=== PATIENT | female | born 1975 ===

== ENCOUNTER 2017-06-03 17:46 | Emergency (ER) | payer OTHER ==
[2017-06-03 17:46] VITALS: BMI 28.5
[2017-06-03 17:53] VITALS: O2SAT 97
--- NOTE | 2017-06-03 19:10 | C.PDOC ---
History Of Present Illness 41 y/o female c/o sore throat since last night, with difficulty and painful swallowing. denies sick contacts, denies cough, runny nose, c/o itchy ears. Time Seen by Provider: 06/03/17 18:49 Chief Complaint (Nursing): ENT Problem History Per: Patient History/Exam Limitations: None Onset/Duration Of Symptoms: Days (1) Current Symptoms Are (Timing): Still Present Quality (Ear): Other (itching) Quality (Mouth/Throat): Tenderness, Swelling, Redness Symptoms Have Been: Continuous Severity: Moderate Anticoagulant/Antiplatlet Use?: No Past Medical History Reviewed: Historical Data, Nursing Documentation, Vital Signs Vital Signs: Last Vital Signs Temp 98.2 F 06/03/17 19:23 Pulse 75 06/03/17 19:23 Resp 18 06/03/17 19:23 BP 128/75 06/03/17 19:23 Pulse Ox 97 06/03/17 19:24 - Medical History PMH: Anemia, Asthma, Back Problems, HTN Denies: Chronic Kidney Disease Surgical History: Cholecystectomy Other Surgeries: hysterectomy - [facility] Procedures LAPAROSCOP LYSIS-ADHES OVA,FALLOP TUBE (02/20/15) LAPAROSCOP UNILAT SALPINGO-OOPHORECTOMY (02/20/15) LAPAROSCOPIC ROBOTIC ASSISTED PROCEDURE (02/20/15) Family History: States: Unknown Family Hx - Social History Hx Tobacco Use: No Hx Alcohol Use: No Hx Substance Use: No - Immunization History Hx Tetanus Toxoid Vaccination: Yes Hx Influenza Vaccination: No Hx Pneumococcal Vaccination: Yes Review Of Systems Constitutional: Negative for: Fever, Chills ENT: Positive for: Throat Pain, Throat Swelling. Negative for: Ear Pain (itchy ears), Nose Pain Cardiovascular: Negative for: Chest Pain Respiratory: Negative for: Cough, Shortness of Breath Skin: Negative for: Rash Physical Exam - Physical Exam Appears: Non-toxic, No Acute Distress Skin: Warm, Dry Head: Atraumatic, Normacephalic Eye(s): bilateral: Normal Inspection Ear(s): Bilateral: Normal Nose: Normal Oral Mucosa: Moist Tongue: Normal Appearing Lips: Normal Appearing, No Swelling Teeth: Normal Dentition Throat: Erythema, Exudate, No Drooling, No Mass, Other (right greater than left , not touching. ) Neck: Normal ROM Lymphatic: Adenopathy (bilateral submandibular tender nodes, right greater than left) Cardiovascular: Rhythm Regular, No Murmur Respiratory: Normal Breath Sounds, No Rales, No Rhonchi, No Wheezing ED Course And Treatment O2 Sat by Pulse Oximetry: 97 Medical Decision Making Medical Decision Making: pt with bilateral elnarged nodes with exudate, will tx for pharyngitis. Disposition Counseled Patient/Family Regarding: Diagnosis, Need For Followup, Rx Given - Disposition Referrals: Shaik Conde MD [Staff Provider] - Disposition: HOME/ ROUTINE Disposition Time: 19:20 Condition: STABLE Additional Instructions: Gargle with warm salty water 3 times a day. Ibupforen for pain. Take antibiotics as prescribed. Follow up with your doctor in a few days. Prescriptions: Amoxicillin 500 mg PO BID #20 tab Ibuprofen [Motrin] 600 mg PO TID #30 tab Instructions: Pharyngitis (ED) Print Language: BENINESE - Clinical Impression Clinical Impression: Pharyngitis
[2017-06-03 19:24] VITALS: BP 128/75; PULSE 75; RESP 18; TEMP 98.2
== END 2017-06-03 19:27 | disposition home or self-care (01) ==
LOC: C.ER 17:46
DX: J02.9 Acute pharyngitis, unspecified (principal)

== ENCOUNTER 2017-08-09 09:49 | Emergency (ER) | payer OTHER ==
[2017-08-09 09:49] VITALS: BMI 28.5
--- NOTE | 2017-08-09 10:31 | C.PDOC ---
History Of Present Illness 08/09/2017 Ade Forte is a 42 year old female, whose past medical history includes HTN , neuropathy, and hysterectomy, presents to the emergency department complaining of a right sided headache for the past three days. Patient reports her last headache was in December, but nothing compared to this current one. She notes taking Ibuprofen 800mg which was prescribed by her PMD and her last dose was at 09:00 prior to arrival, but there was no significant relief. Patient also states the pain radiates down to the right side of neck. Patient denies any nausea, vomiting, light sensitivity, shortness of breath, abdominal pain, or other complaints. Time Seen by Provider: 08/09/17 10:01 Chief Complaint (Nursing): Headache History Per: Patient History/Exam Limitations: no limitations Onset/Duration Of Symptoms: Days (3 days) Current Symptoms Are (Timing): Still Present Preceeding Symptoms: denies: Visual Disturbances Associated Symptoms: denies: Blurred Vision, Nausea, Vomiting Past Medical History Reviewed: Historical Data, Nursing Documentation, Vital Signs Vital Signs: Last Vital Signs Temp 98.0 F 08/09/17 11:54 Pulse 62 08/09/17 11:54 Resp 16 08/09/17 11:54 BP 130/81 08/09/17 11:54 Pulse Ox 99 08/09/17 11:56 - Medical History PMH: Anemia, Asthma, Back Problems, HTN Denies: Chronic Kidney Disease Surgical History: Cholecystectomy - [facility] Procedures LAPAROSCOP LYSIS-ADHES OVA,FALLOP TUBE (02/20/15) LAPAROSCOP UNILAT SALPINGO-OOPHORECTOMY (02/20/15) LAPAROSCOPIC ROBOTIC ASSISTED PROCEDURE (02/20/15) Family History: States: Unknown Family Hx - Social History Hx Tobacco Use: No Hx Alcohol Use: No Hx Substance Use: No - Immunization History Hx Tetanus Toxoid Vaccination: Yes Hx Influenza Vaccination: No Hx Pneumococcal Vaccination: Yes Review Of Systems Constitutional: Negative for: Fever Cardiovascular: Negative for: Chest Pain Respiratory: Negative for: Shortness of Breath Gastrointestinal: Negative for: Nausea, Vomiting Neurological: Positive for: Headache (right sided headache that radiates down to right side of neck) Physical Exam - Physical Exam Appears: Well, Non-toxic, No Acute Distress Skin: Normal Color, Warm, Dry Head: Atraumatic, Normacephalic Eye(s): bilateral: Normal Inspection, PERRL, EOMI Neck: Normal, Normal ROM, Other (no nystagmus) Cardiovascular: Rhythm Regular, No Friction Rub Gastrointestinal/Abdominal: Soft, No Tenderness Extremity: Normal ROM Neurological/Psych: Oriented x3, Normal Speech, Normal Cognition, Normal Cranial Nerves, Normal Motor, Normal Sensation Extremity: Right: No Drift, Left: No Drift ED Course And Treatment O2 Sat by Pulse Oximetry: 99 (room air) Pulse Ox Interpretation: Normal - Radiology CXR: Read By Radiologist Medical Decision Making Medical Decision Makin08/09/2017 Impression: 42 year old with headache for the past three days that radiates down to right side of neck. No nystagmus present on physical exam. Motor, cranial, strength, and sensation intact. Plan: -- Head CT without contrast -- Reglan -- Reassess and disposition Progress Notes: 08/09/2017 11:[address]: Creator : Rasheed Jackson MD FINDINGS: HEMORRHAGE: No intracranial hemorrhage. BRAIN: No mass effect or edema. No atrophy or chronic microvascular ischemic changes. Stable calcification of anterior falx cerebri. . VENTRICLES: Unremarkable. No hydrocephalus. CALVARIUM: Unremarkable. PARANASAL SINUSES: No evidence of sinusitis. Deviated nasal septum towards the left. MASTOID AIR CELLS: Unremarkable as visualized. No inflammatory changes. OTHER FINDINGS: None. IMPRESSION: No intracranial mass, hemorrhage or evidence of acute infarct. 1153 am pt reports headache resolved. ct negative. will d/c with pmd f/u Disposition Counseled Patient/Family Regarding: Studies Performed, Diagnosis, Need For Followup - Disposition Referrals: Shaik Conde MD [Staff Provider] - Disposition: HOME/ ROUTINE Disposition Time: 11:54 Condition: STABLE Additional Instructions: Jauregui exploracin del cerebro es normal. Seguimiento con el Dr. Conde en los pr ximos espino Volver a ER para cualquier empeoramiento de los sntomas. Instructions: Acute Headache (ED) Forms: Gen Discharge Inst Israeli, [facility] (Israeli) Print Language: UKRAINIAN - Clinical Impression Clinical Impression: Headache - Scribe Statement The provider has reviewed the documentation as recorded by the Scribe 08/09/2017 Scribe Attestation: Melanie Cordoba MD Scribe Attestation: All medical record entries made by the Scribe were at my direction and personally dictated by me. I have reviewed the chart and agree that the record accurately reflects my personal performance of the history, physical exam, medical decision making, and the department course for this patient. I have also personally directed, reviewed, and agree with the discharge instructions and disposition.
--- NOTE | 2017-08-09 11:17 | CT ---
PROCEDURE: CT HEAD WITHOUT CONTRAST. HISTORY: right side headache COMPARISON: 12/14/2014 TECHNIQUE: Axial computed tomography images were obtained through the head/brain without intravenous contrast. Radiation dose: Total exam DLP = 903.32 mGy-cm. This CT exam was performed using one or more of the following dose reduction techniques: Automated exposure control, adjustment of the mA and/or kV according to patient size, and/or use of iterative reconstruction technique. FINDINGS: HEMORRHAGE: No intracranial hemorrhage. BRAIN: No mass effect or edema. No atrophy or chronic microvascular ischemic changes. Stable calcification of anterior falx cerebri. . VENTRICLES: Unremarkable. No hydrocephalus. CALVARIUM: Unremarkable. PARANASAL SINUSES: No evidence of sinusitis. Deviated nasal septum towards the left. MASTOID AIR CELLS: Unremarkable as visualized. No inflammatory changes. OTHER FINDINGS: None. IMPRESSION: No intracranial mass, hemorrhage or evidence of acute infarct.
[2017-08-09 11:55] VITALS: BP 130/81; PULSE 62; RESP 16; TEMP 98
[2017-08-09 11:56] VITALS: O2SAT 99
== END 2017-08-09 12:10 | disposition home or self-care (01) ==
LOC: C.ER 09:49
DX: R51 Headache (principal)
CPT/HCPCS: 70450; 96374; 99284; J2765

== ENCOUNTER 2017-09-26 06:38 | Emergency (ER) | payer OTHER ==
[2017-09-26 06:38] VITALS: BMI 28.5
[2017-09-26] MEDS ORDERED: Albuterol-Ipratrop 3 mg / 0.5 (3 ml) UD ONE (07:44)
[2017-09-26] MEDS: Albuterol-Ipratrop 3 mg / 0.5 (3 ml) UD IH SCH ×2 (08:00→08:10)
--- NOTE | 2017-09-26 08:07 | C.PDOC ---
History Of Present Illness 42 y/o female, with PMHx of sleep apnea, presents to ED for evaluation of intermittent shortness of breath for the past 2 days. Pt states that she is scheduled for surgery to remove her tonsils on 10/05/17 in [place]. Otherwise, denies cough, sputum, chest pain, or fever. Time Seen by Provider: 09/26/17 07:19 Chief Complaint (Nursing): Shortness Of Breath History Per: Patient History/Exam Limitations: no limitations Onset/Duration Of Symptoms: Days (2) Current Symptoms Are (Timing): Still Present Current Respiratory Medications: See Home Med List Severity: None Pain Scale Rating Of: 0 Associated Symptoms: denies: Fever, Chest Pain Recent travel outside of the [place]: No Additional History Per: Patient Past Medical History Reviewed: Historical Data, Nursing Documentation, Vital Signs Vital Signs: Last Vital Signs Temp 98.0 F 09/26/17 09:15 Pulse 68 09/26/17 09:15 Resp 18 09/26/17 09:15 BP 131/87 09/26/17 09:15 Pulse Ox 100 09/26/17 09:15 - Medical History PMH: Anemia, Asthma, Back Problems, HTN, Sleep Apnea Denies: Chronic Kidney Disease Surgical History: Cholecystectomy - [facility] Procedures LAPAROSCOP LYSIS-ADHES OVA,FALLOP TUBE (02/20/15) LAPAROSCOP UNILAT SALPINGO-OOPHORECTOMY (02/20/15) LAPAROSCOPIC ROBOTIC ASSISTED PROCEDURE (02/20/15) Family History: States: Unknown Family Hx - Social History Hx Tobacco Use: No Hx Alcohol Use: No Hx Substance Use: No - Immunization History Hx Tetanus Toxoid Vaccination: Yes Hx Influenza Vaccination: No Hx Pneumococcal Vaccination: Yes Review Of Systems Except As Marked, All Systems Reviewed And Found Negative. Constitutional: Negative for: Fever, Chills ENT: Positive for: Other (enlarged tonsils) Cardiovascular: Negative for: Chest Pain, Palpitations, Edema Respiratory: Positive for: Shortness of Breath. Negative for: Cough, Sputum Neurological: Negative for: Headache, Dizziness Physical Exam - Physical Exam Appears: Non-toxic, No Acute Distress Skin: Normal Color, Warm, Dry Head: Atraumatic, Normacephalic Eye(s): bilateral: Normal Inspection Nose: Normal Oral Mucosa: Moist Throat: No Erythema, No Exudate, No Drooling, Other (enlarged tonsils R>L) Neck: Normal ROM, Supple Chest: Symmetrical Cardiovascular: Rhythm Regular, No Murmur Respiratory: Normal Breath Sounds, No Rales, No Rhonchi, No Wheezing Gastrointestinal/Abdominal: Soft, No Tenderness Extremity: Normal ROM, No Pedal Edema, No Deformity Neurological/Psych: Oriented x3, Normal Speech, Normal Cognition ED Course And Treatment O2 Sat by Pulse Oximetry: 98 (RA) Pulse Ox Interpretation: Normal Progress Note: Patient was given Decadron, and nebulizer treatment. On re- evaluation lungs clear, in no distress Reassessment Condition: Improved Disposition Counseled Patient/Family Regarding: Need For Followup - Disposition Disposition: HOME/ ROUTINE Disposition Time: 09:15 Condition: STABLE Additional Instructions: Follow up with pulmonology for further evaluation Return to ED if any increase symptoms Instructions: Asthma (ED), Dyspnea (ED) Forms: [employer] [facility] (Luxembourgish) - POA Present On Arrival: None - Clinical Impression Clinical Impression: Dyspnea, Asthma - PA / MAINTENANCE JOB TITLES / Resident Statement MD/DO has reviewed & agrees with the documentation as recorded. - Scribe Statement The provider has reviewed the documentation as recorded by the Scribe Sarah Das All medical record entries made by the Robertibjuan jose were at my direction and personally dictated by me. I have reviewed the chart and agree that the record accurately reflects my personal performance of the history, physical exam, medical decision making, and the department course for this patient. I have also personally directed, reviewed, and agree with the discharge instructions and disposition.
[2017-09-26 09:16] VITALS: BP 131/87; PULSE 68; RESP 18; TEMP 98
[2017-09-26 17:38] VITALS: O2SAT 98
== END 2017-09-26 09:49 | disposition home or self-care (01) ==
LOC: C.ER 06:38
DX: J45.909 Unspecified asthma, uncomplicated (principal); I10 Essential (primary) hypertension; G47.30 Sleep apnea, unspecified; R06.00 Dyspnea, unspecified
CPT/HCPCS: 94640; 99283; J8540

== ENCOUNTER 2017-10-08 08:53 | Emergency (ER) | payer OTHER ==
[2017-10-08 09:15] VITALS: BMI 31.4
[2017-10-08] MEDS ORDERED: Sodium Chloride 0.9% 1,000 ML IV ONE (09:29)
[2017-10-08] MEDS ORDERED: Sodium Chloride 0.9% 1,000 ML ONE (09:44)
--- NOTE | 2017-10-08 09:47 | C.PDOC ---
History Of Present Illness 42 y/o female c/o throat pain and blood in both nostrils s/p ENT surgery. Pt states that she has dry blood and drainage tubes in her nostrils. Pt states that she tried taking Percocet for pain but it makes her nauseous. Notes that she is unable to tolerate food. The surgeon from [place] recommended Tylenol for pain. No fever, shortness of breath, or other complaints. Time Seen by Provider: 10/08/17 09:09 Chief Complaint (Nursing): ENT Problem History Per: Patient History/Exam Limitations: no limitations Onset/Duration Of Symptoms: Days Current Symptoms Are (Timing): Still Present Quality: "Pain" Associated Symptoms: Nausea. denies: Dyspnea, Diaphoresis, Syncope Recent travel outside of the [place]: No Past Medical History Reviewed: Historical Data, Nursing Documentation, Vital Signs Vital Signs: Last Vital Signs Temp 98.9 F 10/08/17 11:17 Pulse 75 10/08/17 11:17 Resp 20 10/08/17 11:17 BP 143/83 10/08/17 11:17 Pulse Ox 98 10/08/17 11:17 - Medical History PMH: Anemia, Asthma, Back Problems, HTN, Sleep Apnea Denies: Chronic Kidney Disease Surgical History: Cholecystectomy, Tonsillectomy Other Surgeries: recent ENT surgery - [facility] Procedures LAPAROSCOP LYSIS-ADHES OVA,FALLOP TUBE (02/20/15) LAPAROSCOP UNILAT SALPINGO-OOPHORECTOMY (02/20/15) LAPAROSCOPIC ROBOTIC ASSISTED PROCEDURE (02/20/15) Family History: States: Unknown Family Hx - Social History Hx Tobacco Use: No Hx Alcohol Use: No Hx Substance Use: No - Immunization History Hx Tetanus Toxoid Vaccination: No Hx Influenza Vaccination: No Hx Pneumococcal Vaccination: No Review Of Systems Except As Marked, All Systems Reviewed And Found Negative. Constitutional: Negative for: Fever, Chills ENT: Positive for: Nose Pain, Nose Discharge, Throat Pain Respiratory: Positive for: Cough Physical Exam - Physical Exam Appears: Non-toxic, No Acute Distress Skin: Normal Color, Warm, Dry Head: Atraumatic, Normacephalic Eye(s): bilateral: Normal Inspection Nose: Other (dry blood and drainage tubes in nostrils) Oral Mucosa: Moist Tongue: Normal Appearing Lips: Normal Appearing Throat: No Erythema, Exudate, No Drooling Neck: Supple Chest: Symmetrical Respiratory: No Accessory Muscle Use Gastrointestinal/Abdominal: Normal Exam Extremity: Normal ROM Neurological/Psych: Oriented x3, Normal Speech Gait: Steady ED Course And Treatment - Laboratory Results Result Diagrams: 10/08/17 09:43 10/08/17 09:43 Lab Interpretation: No Acute Changes Urine POC: Negative ECG: Interpreted By Me ECG Rhythm: Sinus Rhythm ECG Interpretation: Normal Rate From EC O2 Sat by Pulse Oximetry: 99 Pulse Ox Interpretation: Normal - Radiology CXR: Interpreted by Me CXR Interpretation: Yes: No Acute Disease Progress Note: Blood work, UA, EKG, CXR ordered and reviewed. Pt was given Zofran, IV fluids, and Morphine. Nasal irrigation by patient at bedside as per ENT surgeon. Ambulating with steady gait Reassessment Condition: Improved Disposition Counseled Patient/Family Regarding: Studies Performed, Diagnosis, Need For Followup, Rx Given - Disposition Referrals: [facility] [Outside] [facility] [Outside] Disposition: HOME/ ROUTINE Disposition Time: 11:00 Condition: STABLE Additional Instructions: Follow up with your ENT surgeon in [place] for further evaluation Prescriptions: Ondansetron ODT [Zofran ODT] 1 odt PO BID PRN #6 odt PRN Reason: Nausea/Vomiting Instructions: Acute Nausea and Vomiting (ED) Forms: [facility] (Japanese) Print Language: POLISH - POA Present On Arrival: None - Clinical Impression Clinical Impression: Nausea - PA / COMMUNITY DIRECTOR / Resident Statement MD/DO has reviewed & agrees with the documentation as recorded. - Scribe Statement The provider has reviewed the documentation as recorded by the Robertibjuan jose Das All medical record entries made by the Robertibjuan jose were at my direction and personally dictated by me. I have reviewed the chart and agree that the record accurately reflects my personal performance of the history, physical exam, medical decision making, and the department course for this patient. I have also personally directed, reviewed, and agree with the discharge instructions and disposition.
[2017-10-08 09:49] LABS: BASO % 0.7 % (0.0-2.0); EOS # 0.1 K/uL (0.0-0.7); HEMATOCRIT 43.5 % (34.0-47.0); LYMPH % 28.7 % (20.0-40.0); MEAN CELL VOLUME 88.9 fL (81.0-99.0); MEAN CORPUSCULAR HEMOGLOBIN 29.9 pg (27.0-31.0); MEAN CORPUSCULAR HGB CONC 33.6 g/dL (33.0-37.0); MEAN PLATELET VOLUME 8.4 fL (7.2-11.7); MONO # 0.3 K/uL (0.0-0.8); MONO % 3.8 % (0.0-10.0); NRBC % 0.1 % (0.0-2.0); RED CELL DISTRIBUTION WIDTH 13.3 % (11.5-14.5)
[2017-10-08 09:59] LABS: ALB/GLOB RATIO 1.2 (1.0-2.1); ALKALINE PHOSPHATASE 69 U/L (38-126); ALT/SGPT 39 U/L (9-52); AST/SGOT 22 U/L (14-36); BILIRUBIN,TOTAL 0.9 mg/dL (0.2-1.3); CARBON DIOXIDE 31 mmol/L (22-30); GLUCOSE,RANDOM 101 mg/dL (65-105)
[2017-10-08] MEDS ORDERED: Morphine 4 MG/ML VIAL ONE (10:02)
[2017-10-08 10:16] LABS: BLOOD UREA NITROGEN 9 mg/dL (7-17)
[2017-10-08 10:20] LABS: CHLORIDE 95 mmol/L (98-107); GFR AFRICAN-AMERICAN > 60; POTASSIUM 4.3 mmol/L (3.6-5.2); SODIUM 136 mmol/L (132-148)
[2017-10-08 10:24] LABS: RBC URINE 1 /hpf (0-3); URINE BILIRUBIN NEGATIVE (NEGATIVE); URINE BLOOD NEGATIVE (NEGATIVE); URINE COLOR Yellow (YELLOW); URINE GLUCOSE (UA) NORMAL (Normal); URINE KETONE NEGATIVE (NEGATIVE); URINE LEUKOCYTE ESTERASE NEG Leu/uL (Negative); URINE PROTEIN NEGATIVE (NEGATIVE); URINE UROBILINOGEN NORMAL mg/dL (0.2-1.0); WBC URINE 1 /hpf (0-5)
--- NOTE | 2017-10-08 11:04 | RAD ---
HISTORY: SOB COMPARISON: Portable chest 10/01/2015. TECHNIQUE: Chest PA and lateral FINDINGS: LUNGS: No active pulmonary disease. PLEURA: No significant pleural effusion identified. No pneumothorax apparent. CARDIOVASCULAR: Normal. OSSEOUS STRUCTURES: No significant abnormalities. VISUALIZED UPPER ABDOMEN: Surgical clips are seen at the right upper quadrant abdomen. OTHER FINDINGS: None. IMPRESSION: No interval acute cardiopulmonary disease appreciated.
[2017-10-08 11:18] VITALS: BP 143/83; PULSE 75; RESP 20; TEMP 98.9
[2017-10-08 17:29] VITALS: O2SAT 99
--- NOTE | 2017-10-13 11:15 | CARD ---
APPROVED REPORT EKG Measurement Heart [id number] <Conclusion> Normal sinus rhythm Minimal voltage criteria for LVH, may be normal variant Borderline ECG
== END 2017-10-08 11:23 | disposition home or self-care (01) ==
LOC: C.ER 08:53
DX: R11.0 Nausea (principal)
CPT/HCPCS: 71020; 80053; 81001; 84703; 85025; 96361; 96374; 96375; 99285; J2270; J2405; J7040

== ENCOUNTER 2017-10-08 12:04 | Emergency (ER) | payer OTHER ==
[2017-10-08 12:05] VITALS: BMI 31.4
[2017-10-08 12:28] VITALS: RESP 18
--- NOTE | 2017-10-08 13:11 | C.PDOC ---
History Of Present Illness 42 y/o female s/p ENT surgery presents to ED for second time today with complaints of feeling dizzy at home when discharged hours ago. Patient was seen earlier for throat pain. Patient states she went home and started feeling dizzy but resolved and is asymptomatic at ED. No other complaints at this time. Time Seen by Provider: 10/08/17 12:53 Chief Complaint (Nursing): Dizziness/Lightheaded History Per: Patient History/Exam Limitations: no limitations Onset/Duration Of Symptoms: Hrs Current Symptoms Are (Timing): Still Present Activity At Onset Of Symptoms: Walking Fall Associated With With Symptoms: No Past Medical History Reviewed: Historical Data, Nursing Documentation, Vital Signs Vital Signs: Last Vital Signs Temp 98.7 F 10/08/17 13:28 Pulse 81 10/08/17 13:28 Resp 18 10/08/17 13:28 BP 106/72 10/08/17 13:28 Pulse Ox 99 10/08/17 17:52 - Medical History PMH: Anemia, Asthma, Back Problems, HTN, Sleep Apnea Surgical History: Cholecystectomy, Tonsillectomy Other Surgeries: ENT surgery - [facility] Procedures LAPAROSCOP LYSIS-ADHES OVA,FALLOP TUBE (02/20/15) LAPAROSCOP UNILAT SALPINGO-OOPHORECTOMY (02/20/15) LAPAROSCOPIC ROBOTIC ASSISTED PROCEDURE (02/20/15) Family History: States: No Known Family Hx - Social History Hx Tobacco Use: No Hx Alcohol Use: No Hx Substance Use: No - Immunization History Hx Tetanus Toxoid Vaccination: No Hx Influenza Vaccination: No Hx Pneumococcal Vaccination: No Review Of Systems Constitutional: Negative for: Fever, Chills ENT: Positive for: Throat Pain Gastrointestinal: Negative for: Nausea, Vomiting Skin: Negative for: Rash Neurological: Positive for: Dizziness. Negative for: Weakness, Numbness Physical Exam - Physical Exam Appears: Non-toxic, No Acute Distress Skin: Warm, No Rash Head: Atraumatic, Normacephalic Oral Mucosa: Moist Neck: Normal ROM, Supple Cardiovascular: Rhythm Regular Respiratory: Normal Breath Sounds, No Rales, No Rhonchi, No Wheezing Gastrointestinal/Abdominal: Soft, No Tenderness, No Guarding, No Rebound Neurological/Psych: Oriented x3, Normal Speech, Normal Cognition, Normal Motor, Normal Sensation Gait: Steady ED Course And Treatment O2 Sat by Pulse Oximetry: 99 (RA) Pulse Ox Interpretation: Normal Progress Note: Patient reports she is feeling better and requests discharge. Discharged in stable condition. Ambulating with steady gait, neuro intact Disposition Counseled Patient/Family Regarding: Need For Followup - Disposition Referrals: [facility] [Outside] [facility] [Outside] Disposition: HOME/ ROUTINE Disposition Time: 13:30 Condition: STABLE Additional Instructions: Follow up with your PMD for further evaluation Instructions: Dizziness (ED) Forms: [employer] (Gambian) Print Language: KAZAKH - POA Present On Arrival: None - Clinical Impression Clinical Impression: Dizziness - PA / POWER HAMMER OPERATOR / Resident Statement MD/DO has reviewed & agrees with the documentation as recorded. - Scribe Statement The provider has reviewed the documentation as recorded by the Robertibjuan jose Valladares All medical record entries made by the Nicole were at my direction and personally dictated by me. I have reviewed the chart and agree that the record accurately reflects my personal performance of the history, physical exam, medical decision making, and the department course for this patient. I have also personally directed, reviewed, and agree with the discharge instructions and disposition.
[2017-10-08 13:30] VITALS: BP 106/72; PULSE 81; TEMP 98.7
[2017-10-08 13:38] VITALS: O2SAT 99
--- NOTE | 2017-10-13 11:12 | CARD ---
APPROVED REPORT EKG Measurement Heart [id number] <Conclusion> Normal sinus rhythm Minimal voltage criteria for LVH, may be normal variant Borderline ECG
== END 2017-10-08 13:30 | disposition home or self-care (01) ==
LOC: C.ER 12:04
DX: R42 Dizziness and giddiness (principal)

== ENCOUNTER 2018-02-08 15:23 | Emergency (ER) | payer OTHER ==
[2018-02-08 15:24] VITALS: BMI 31.4
[2018-02-08 15:39] VITALS: BP 131/80; PULSE 81; RESP 18; TEMP 98.1; O2SAT 97
--- NOTE | 2018-02-08 17:05 | C.PDOC ---
History Of Present Illness 42 year old female presents to the ED c/o bilateral lower back pain radiating to her groin that started on Thursday. Patient denies any heavy lifting, recent injury, fall, trauma. Patient denies numbness, weakness, saddle anesthesia, bowel or bladder dysfunction, some urinary frequency. no fever or chills. no vnnauea or vomiting. Time Seen by Provider: 02/08/18 16:27 Chief Complaint (Nursing): Back Pain History Per: Patient History/Exam Limitations: no limitations Onset/Duration Of Symptoms: Days Current Symptoms Are (Timing): Still Present Quality Of Discomfort: "Pain" Severity: None Previous Symptoms: Back Pain Associated Symptoms: None Recent travel outside of the [place]: No Additional History Per: Patient Past Medical History Reviewed: Historical Data, Nursing Documentation, Vital Signs Vital Signs: Last Vital Signs Temp 98.1 F 02/08/18 15:37 Pulse 81 02/08/18 15:37 Resp 18 02/08/18 15:37 BP 131/80 02/08/18 15:37 Pulse Ox 97 02/10/18 01:29 - Medical History PMH: Anemia, Asthma, Back Problems, HTN, Sleep Apnea Denies: Chronic Kidney Disease Surgical History: Cholecystectomy, Tonsillectomy - [facility] Procedures LAPAROSCOP LYSIS-ADHES OVA,FALLOP TUBE (02/20/15) LAPAROSCOP UNILAT SALPINGO-OOPHORECTOMY (02/20/15) LAPAROSCOPIC ROBOTIC ASSISTED PROCEDURE (02/20/15) Family History: States: Unknown Family Hx - Social History Hx Tobacco Use: No Hx Alcohol Use: Yes Hx Substance Use: No - Immunization History Hx Tetanus Toxoid Vaccination: No Hx Influenza Vaccination: No Hx Pneumococcal Vaccination: No Review Of Systems Constitutional: Negative for: Fever, Chills Cardiovascular: Negative for: Chest Pain, Palpitations Respiratory: Negative for: Cough, Shortness of Breath Gastrointestinal: Negative for: Nausea, Vomiting, Abdominal Pain Musculoskeletal: Positive for: Back Pain Skin: Negative for: Rash Neurological: Negative for: Weakness, Numbness Physical Exam - Physical Exam Appears: Non-toxic, No Acute Distress Skin: Warm, Dry Neck: No Midline Cervical Tenderness, Supple Gastrointestinal/Abdominal: Soft, No Tenderness, No Mass, No Guarding, No Rebound Back: No CVA Tenderness, No Vertebral Tenderness, Paraspinal Tenderness (B/L lower lumbar), Other (B/L groin area tenderness) Extremity: Normal ROM, No Tenderness, No Calf Tenderness, No Swelling Neurological/Psych: Oriented x3, Normal Speech, Normal Cognition, Normal Motor, Normal Sensation Gait: Steady ED Course And Treatment O2 Sat by Pulse Oximetry: 97 (On RA) Pulse Ox Interpretation: Normal Medical Decision Making Medical Decision Making: Plan: * Flexeril 10 mg PO * Toradol 30 mg IM * UA pt feeling better, d/c home with nsaids and flexeril. f/u pmd Disposition Counseled Patient/Family Regarding: Diagnosis, Need For Followup, Rx Given - Disposition Referrals: Shaik Conde MD [Staff Provider] - Disposition: HOME/ ROUTINE Disposition Time: 17:41 Condition: IMPROVED Additional Instructions: Please follow up with your doctor in a few days. Take medications as prescribed. Muscle relaxant makes you sleepy- be careful with this medicine. Prescriptions: Cyclobenzaprine [Cyclobenzaprine HCl] 10 mg PO Q8 #9 tab Ibuprofen [Motrin] 600 mg PO TID #30 tab Instructions: Low Back Pain (DC) Forms: [facility] [employer] (Sinhala), General Discharge Instructions Print Language: MOSOTHO - Clinical Impression Clinical Impression: Lumbar sprain - PA / GATE CUTTER / Resident Statement MD/DO has reviewed & agrees with the documentation as recorded. - Scribe Statement The provider has reviewed the documentation as recorded by the Scribe Davy Billy All medical record entries made by the Scribe were at my direction and personally dictated by me. I have reviewed the chart and agree that the record accurately reflects my personal performance of the history, physical exam, medical decision making, and the department course for this patient. I have also personally directed, reviewed, and agree with the discharge instructions and disposition.
[2018-02-08 17:24] LABS: SQUAMOUS EPITHIAL 4 /hpf (0-5); URINE BACTERIA OCC (<OCC); URINE BILIRUBIN NEGATIVE (NEGATIVE); URINE BLOOD NEGATIVE (NEGATIVE); URINE CLARITY Hazy (Clear); URINE COLOR Yellow (YELLOW); URINE GLUCOSE (UA) NORMAL (Normal); URINE LEUKOCYTE ESTERASE NEG Leu/uL (Negative); URINE PROTEIN NEGATIVE (NEGATIVE); URINE UROBILINOGEN NORMAL mg/dL (0.2-1.0)
== END 2018-02-08 17:53 | disposition home or self-care (01) ==
LOC: C.ER 15:23
DX: S33.5XXA Sprain of ligaments of lumbar spine, initial encounter (principal); X58.XXXA Exposure to other specified factors, initial encounter; I10 Essential (primary) hypertension
CPT/HCPCS: 81001; 96372; 99284; J1885

== ENCOUNTER 2018-04-24 19:00 | Emergency (ER) | payer OTHER ==
[2018-04-24 19:03] VITALS: BMI 34.0
[2018-04-24 19:12] VITALS: TEMP 98.9; O2SAT 100
--- NOTE | 2018-04-24 19:16 | C.PDOC ---
History Of Present Illness 42 y/o female presents to the ED via ambulance for evaluation of elevated BP. Of note, patient is also complaining of a headache that began this morning. States she went to the pharmacy, where her blood pressure was found to be elevated. She then began feeling weak and tired, and noticed a "pressure behind the back of her neck" denies any neurological deficit. So she called EMS. Patient was then brought in by EMS who also noted the patient had no facial droop or focal weakness. Pt taking Lisinopril 10 mg daily. pt "unable" to walk for exercise nor loose weight due to chronic bilateral foot pains. Patient denies any associated slurred speech, visual loss, confusion, memory loss, numbness, dizziness, chest pain, or other complaints. Time Seen by Provider: 04/24/18 19:13 Chief Complaint (Nursing): Weakness/Neurological Deficit History Per: Patient History/Exam Limitations: no limitations Onset/Duration Of Symptoms: Hrs Current Symptoms Are (Timing): Still Present Past Medical History Reviewed: Historical Data, Nursing Documentation, Vital Signs Vital Signs: Last Vital Signs Temp 98.9 F 04/24/18 19:11 Pulse 106 H 04/24/18 19:11 Resp 22 04/24/18 19:11 BP 184/114 H 04/24/18 19:11 Pulse Ox 100 04/24/18 19:37 - Medical History PMH: Anemia, Asthma, Back Problems, HTN, Sleep Apnea Denies: Chronic Kidney Disease Surgical History: Cholecystectomy, Tonsillectomy - [facility] Procedures LAPAROSCOP LYSIS-ADHES OVA,FALLOP TUBE (02/20/15) LAPAROSCOP UNILAT SALPINGO-OOPHORECTOMY (02/20/15) LAPAROSCOPIC ROBOTIC ASSISTED PROCEDURE (02/20/15) Family History: States: Unknown Family Hx - Social History Hx Tobacco Use: No Hx Alcohol Use: No Hx Substance Use: No - Immunization History Hx Tetanus Toxoid Vaccination: No Hx Influenza Vaccination: No Hx Pneumococcal Vaccination: No Review Of Systems Except As Marked, All Systems Reviewed And Found Negative. Constitutional: Positive for: Weakness Eyes: Negative for: Vision Change Cardiovascular: Negative for: Chest Pain, Light Headedness Gastrointestinal: Negative for: Nausea Musculoskeletal: Positive for: Neck Pain Neurological: Positive for: Weakness (of left arm), Headache, Other (Right facial droop). Negative for: Numbness, Incoordination, Change in Speech, Confusion, Dizziness Physical Exam - Physical Exam Appears: Non-toxic, No Acute Distress, Other (Anxious appearing; Obese black female, appears older than stated age) Skin: Normal Color, Warm, Dry Head: Atraumatic, Normacephalic, Other (No facial droop) Eye(s): bilateral: Normal Inspection, PERRL, EOMI Nose: Normal Oral Mucosa: Moist Throat: Normal, No Erythema, No Exudate Neck: Normal ROM, Supple (and nontender) Chest: Symmetrical Cardiovascular: Rhythm Regular, No Murmur Respiratory: Normal Breath Sounds, No Rales, No Rhonchi, No Wheezing Gastrointestinal/Abdominal: Soft, No Tenderness, No Guarding Back: Normal Inspection, No CVA Tenderness, No Vertebral Tenderness Extremity: Normal ROM (with no focal deficits; Motor strength is 5/5 throughout) , No Tenderness, No Deformity, No Swelling, Other (On exam, pt using left hand to speak on cell phone) Extremity: Bilateral: Atraumatic, Normal Color And Temperature Pulses: Left Dorsalis Pedis: Normal, Right Dorsalis Pedis: Normal Neurological/Psych: Oriented x3, Normal Speech, Normal Cranial Nerves, Cerebellar Signs (normal), Normal Motor, Normal Sensation Gait: Steady Other Neurological Findings: No Facial Palsy Extremity: Left: No Drift, Upper: No Drift ED Course And Treatment - Laboratory Results Result Diagrams: 04/24/18 19:19 04/24/18 19:19 Lab Interpretation: Normal (trop neg.) ECG: Interpreted By Nv ECG Rhythm: Sinus Rhythm ECG Interpretation: Normal Rate From EC O2 Sat by Pulse Oximetry: 100 (RA) Pulse Ox Interpretation: Normal - Radiology CXR: Interpreted by Nv CXR Interpretation: Yes: No Acute Disease Progress Note: tylenol, xanax, lisinopril 20 mg Reevaluation Time: 21:09 Reassessment Condition: Improved Medical Decision Making Medical Decision Making: Time: 19:13 Initial Plan: * EKG * Labs * Chest x-ray * Xanax 0.25 PO * Tylenol 975 mg PO * Lisinopril 20 mg PO * Reevaluation poorly controlled HTN on Lisinopril 10 mg only. anxiety, headache. NO s/s nor h/o of symptoms related to neurological deficit nor CVA Disposition Doctor Will See Patient In The: Office Counseled Patient/Family Regarding: Studies Performed, Diagnosis - Disposition Disposition: HOME/ ROUTINE Disposition Time: 21:10 Condition: GOOD Forms: [facility] (Grenadian) - Clinical Impression Clinical Impression: Anxiety, Hypertension - Scribe Statement The provider has reviewed the documentation as recorded by the Scribe (Migdalia Pollack) Provider Attestation: All medical record entries made by the Scribe were at my direction and personally dictated by me. I have reviewed the chart and agree that the record accurately reflects my personal performance of the history, physical exam, medical decision making, and the department course for this patient. I have also personally directed, reviewed, and agree with the discharge instructions and disposition.
[2018-04-24 19:21] LABS: BASO # 0.1 K/uL (0.0-0.2); EOS % 0.6 % (0.0-4.0); HEMOGLOBIN 13.7 g/dL (11.0-16.0); LYMPH % 37.3 % (20.0-40.0); MEAN CELL VOLUME 87.2 fL (81.0-99.0); MEAN CORPUSCULAR HEMOGLOBIN 29.4 pg (27.0-31.0); MEAN CORPUSCULAR HGB CONC 33.7 g/dL (33.0-37.0); MEAN PLATELET VOLUME 8.9 fL (7.2-11.7); MONO # 0.4 K/uL (0.0-0.8); NEUT # 4.6 K/uL (1.8-7.0); NEUT % 56.1 % (50.0-75.0); NRBC % 0.1 % (0.0-2.0); RBC 4.66 Mil/uL (3.80-5.20); RED CELL DISTRIBUTION WIDTH 13.8 % (11.5-14.5); WHITE BLOOD COUNT 8.2 K/uL (4.8-10.8)
[2018-04-24 19:35] LABS: ALB/GLOB RATIO 1.1 (1.0-2.1); ALBUMIN 4.5 g/dL (3.5-5.0); ALT/SGPT 41 U/L (9-52); AST/SGOT 38 U/L (14-36); BLOOD UREA NITROGEN 12 mg/dL (7-17); CALCIUM 9.4 mg/dl (8.6-10.4); GFR AFRICAN-AMERICAN > 60; GFR NON-AFRICAN AMERICAN > 60
[2018-04-24 19:47] LABS: B-TYPE NATRIURETIC PEPTIDE 98.1 pg/mL (0-450)
[2018-04-24 20:58] LABS: SQUAMOUS EPITHIAL < 1 /hpf (0-5); URINE BILIRUBIN NEGATIVE (NEGATIVE); URINE BLOOD NEGATIVE (NEGATIVE); URINE CLARITY Clear (Clear); URINE COLOR Yellow (YELLOW); URINE GLUCOSE (UA) NORMAL (Normal); URINE LEUKOCYTE ESTERASE NEG Leu/uL (Negative); URINE PROTEIN NEGATIVE (NEGATIVE); URINE UROBILINOGEN NORMAL mg/dL (0.2-1.0)
[2018-04-24 21:11] VITALS: BP 140/90; PULSE 85; RESP 19
[2018-04-24 21:12] LABS: BARBITURATES, UR NEGATIVE (NEGATIVE); BENZODIAZEPINES, UR NEGATIVE (NEGATIVE); OPIATES, UR NEGATIVE (NEGATIVE); PHENCYCLIDINE, UR NEGATIVE (NEGATIVE)
--- NOTE | 2018-04-25 11:07 | RAD ---
PROCEDURE: CHEST RADIOGRAPH, 1 VIEW HISTORY: SOB COMPARISON: Chest radiographs 10/08/2017. FINDINGS: LUNGS: Diminished inspiratory volume appears to accentuate the bronchovascular markings at the bases. Alveolitis is not suspected however clinically correlate further. PLEURA: No pneumothorax or pleural fluid seen. CARDIOVASCULAR: The cardiac silhouette is essentially by frontal technique. No definite pulmonary vascular congestion. OSSEOUS STRUCTURES: No significant abnormalities. VISUALIZED UPPER ABDOMEN: Normal. OTHER FINDINGS: None. IMPRESSION: Limited inspiratory volume. Accordingly, bronchovascular markings appear crowded at the bilateral bases. Borderline cardiomegaly. No pulmonary vascular congestion.
== END 2018-04-24 21:24 | disposition home or self-care (01) ==
LOC: C.ER 19:00
DX: I10 Essential (primary) hypertension (principal); F41.9 Anxiety disorder, unspecified; D64.9 Anemia, unspecified; G47.30 Sleep apnea, unspecified

== ENCOUNTER 2018-04-25 04:26 | Emergency (ER) | payer OTHER ==
[2018-04-25 04:27] VITALS: BMI 34.0
--- NOTE | 2018-04-25 05:08 | C.PDOC ---
History Of Present Illness 42 y/o female presents to the ED complaining of a persistent headache. Patient was seen here yesterday for the same complaint and discharged home. PMHx is significant for hypertension. Patient denies any nausea, vomiting, dizziness, visual changes, fever, neck stiffness, numbness, weakness, or SOB Time Seen by Provider: 04/25/18 04:49 Chief Complaint (Nursing): Headache History Per: Patient History/Exam Limitations: no limitations Onset/Duration Of Symptoms: Days Current Symptoms Are (Timing): Still Present Past Medical History Reviewed: Historical Data, Nursing Documentation, Vital Signs Vital Signs: Last Vital Signs Temp 99.2 F 04/25/18 04:41 Pulse 90 04/25/18 04:41 Resp 18 04/25/18 04:41 BP 156/90 H 04/25/18 04:41 Pulse Ox 97 04/25/18 06:04 - Medical History PMH: Anemia, Asthma, Back Problems, HTN, Sleep Apnea Denies: Chronic Kidney Disease Surgical History: Cholecystectomy, Tonsillectomy - [facility] Procedures LAPAROSCOP LYSIS-ADHES OVA,FALLOP TUBE (02/20/15) LAPAROSCOP UNILAT SALPINGO-OOPHORECTOMY (02/20/15) LAPAROSCOPIC ROBOTIC ASSISTED PROCEDURE (02/20/15) Family History: States: Unknown Family Hx - Social History Hx Tobacco Use: No Hx Alcohol Use: Yes Hx Substance Use: No - Immunization History Hx Tetanus Toxoid Vaccination: No Hx Influenza Vaccination: No Hx Pneumococcal Vaccination: No Review Of Systems Except As Marked, All Systems Reviewed And Found Negative. Constitutional: Negative for: Fever, Chills Eyes: Negative for: Vision Change Respiratory: Negative for: Shortness of Breath Gastrointestinal: Negative for: Nausea, Vomiting Musculoskeletal: Negative for: Neck Pain Neurological: Positive for: Headache. Negative for: Weakness, Numbness, Confusion, Dizziness Physical Exam - Physical Exam Appears: Non-toxic, No Acute Distress Skin: Normal Color, Warm, Dry Head: Atraumatic, Normacephalic Eye(s): bilateral: Normal Inspection (with no nystagmus), PERRL, EOMI Nose: Normal Oral Mucosa: Moist Neck: Normal ROM, No Midline Cervical Tenderness, Supple Chest: Symmetrical Cardiovascular: Rhythm Regular, No Murmur Respiratory: Normal Breath Sounds, No Rales, No Rhonchi, No Wheezing Gastrointestinal/Abdominal: Soft, No Tenderness, No Distention Back: Normal Inspection, No CVA Tenderness, No Vertebral Tenderness Extremity: Bilateral: Atraumatic, Normal Color And Temperature, Normal ROM Pulses: Left Dorsalis Pedis: Normal, Right Dorsalis Pedis: Normal Neurological/Psych: Oriented x3, Normal Speech, Normal Cranial Nerves, Cerebellar Signs (normal), Normal Motor, Normal Sensation, Other (No focal deficits) Gait: Steady ED Course And Treatment O2 Sat by Pulse Oximetry: 97 (RA) Pulse Ox Interpretation: Normal Medical Decision Making Medical Decision Making: Time: 4:52 Initial Plan: --Toradol 60 mg IM --CT Head w/o contrast Disposition Counseled Patient/Family Regarding: Diagnosis - Disposition Referrals: [facility] [Outside] Disposition Time: 06:01 Condition: STABLE Additional Instructions: CONTINUE TAKING BLOOD PRESSURE MEDICINE REGULARLY. Prescriptions: Naproxen 375 mg PO TIDPC #20 tablet Instructions: High Blood Pressure in Adults, Headache, Adult (DC) Forms: [facility] (Frisian) - POA Present On Arrival: None - Clinical Impression Clinical Impression: Headache, Hypertension - Scribe Statement The provider has reviewed the documentation as recorded by the Scribe (Migdalia Pollack) Provider Attestation: All medical record entries made by the Scribe were at my direction and personally dictated by me. I have reviewed the chart and agree that the record accurately reflects my personal performance of the history, physical exam, medical decision making, and the department course for this patient. I have also personally directed, reviewed, and agree with the discharge instructions and disposition.
--- NOTE | 2018-04-25 05:59 | CT ---
EXAM: CT Head Without Intravenous Contrast EXAM DATE/TIME: 04/25/2018 4:52 AM CLINICAL HISTORY: 42 years old, female; Pain; Headache; Other: Frontal; Additional info: Frontal headache TECHNIQUE: Axial computed tomography images of the head/brain without intravenous contrast. All CT scans at this facility use one or more dose reduction techniques, viz.: automated exposure control; ma/kV adjustment per patient size (including targeted exams where dose is matched to indication; i.e. head); or iterative reconstruction technique. Coronal and sagittal reformatted images were created and reviewed. COMPARISON: No relevant prior studies available. FINDINGS: BRAIN: No significant acute abnormality identified. No acute hemorrhage seen within the brain. No acute extra-axial fluid collections visualized. No evidence of significant mass effect within the brain. VENTRICLES: No evidence of significant hydrocephalus. BONES/JOINTS: No acute fractures or other acute bony abnormality noted. SOFT TISSUES: No acute abnormality of the visualized soft tissues is seen. SINUSES: Visualized paranasal sinuses appear clear. MASTOID AIR CELLS: Mastoid air cells appear clear. IMPRESSION: - No acute findings seen within the brain. - See above for remaining findings.
[2018-04-25 06:36] VITALS: BP 165/97; PULSE 79; RESP 17; TEMP 97.7; O2SAT 100
== END 2018-04-25 06:35 | disposition home or self-care (01) ==
LOC: C.ER 04:26
DX: R51 Headache (principal); I10 Essential (primary) hypertension
CPT/HCPCS: 70450; 96372; 99284; J1885

== ENCOUNTER 2018-04-25 22:27 | Emergency (ER) | payer OTHER ==
[2018-04-25 22:29] VITALS: BMI 34.0
[2018-04-25 22:40] VITALS: TEMP 98.3
[2018-04-25] MEDS ORDERED: Alum-Mag Hydrox-Simethicone Susp (30 mL) PO STA (22:55)
--- NOTE | 2018-04-25 22:58 | C.PDOC ---
History Of Present Illness 42 year old female presents to the ED c/o palpitations. Patient had multiple prior visits to the ED with vague symptoms. This is the patient's 3rd evaluation in 24 hrs. Patient was last seen for a headache, and was D/C home with a normal head CT. Patient denies CP, SOB< weakness, numbness. Time Seen by Provider: 04/25/18 22:40 Chief Complaint (Nursing): Palpitations History Per: Patient History/Exam Limitations: no limitations Onset/Duration Of Symptoms: Hrs Current Symptoms Are (Timing): Still Present Suicide/Self Injury Attempted (Context): None Modifying Factor(s): None Associated Symptoms: denies: Depression, Suicidal Thoughts, Suicidal Plan Involuntary Hold By: None Recent travel outside of the [place]: No Additional History Per: Patient Past Medical History Reviewed: Historical Data, Nursing Documentation, Vital Signs Vital Signs: Last Vital Signs Temp 98.3 F 04/25/18 23:12 Pulse 76 04/25/18 23:12 Resp 18 04/25/18 23:32 BP 130/76 04/25/18 23:12 Pulse Ox 100 04/25/18 23:12 - Medical History PMH: Anemia, Asthma, Back Problems, HTN, Sleep Apnea Denies: Chronic Kidney Disease Surgical History: Cholecystectomy, Tonsillectomy - [facility] Procedures LAPAROSCOP LYSIS-ADHES OVA,FALLOP TUBE (02/20/15) LAPAROSCOP UNILAT SALPINGO-OOPHORECTOMY (02/20/15) LAPAROSCOPIC ROBOTIC ASSISTED PROCEDURE (02/20/15) Family History: States: Unknown Family Hx - Social History Hx Tobacco Use: No Hx Alcohol Use: No Hx Substance Use: No - Immunization History Hx Tetanus Toxoid Vaccination: No Hx Influenza Vaccination: No Hx Pneumococcal Vaccination: No Review Of Systems Constitutional: Negative for: Fever, Chills Cardiovascular: Negative for: Chest Pain, Palpitations Respiratory: Negative for: Shortness of Breath Gastrointestinal: Negative for: Nausea, Vomiting Skin: Negative for: Rash Psych: Negative for: Depression, Suicidal ideation Physical Exam - Physical Exam Appears: Non-toxic, No Acute Distress, Other (obese) Skin: Normal Color, Warm, Dry Head: Atraumatic, Normacephalic Eye(s): bilateral: Normal Inspection Oral Mucosa: Moist Neck: Normal ROM, Supple Chest: Symmetrical Cardiovascular: Rhythm Regular Respiratory: Normal Breath Sounds, No Rales, No Rhonchi, No Wheezing Gastrointestinal/Abdominal: Soft, No Tenderness, No Guarding, No Rebound Extremity: Normal ROM, No Tenderness, No Swelling Neurological/Psych: Oriented x3, Normal Speech Gait: Steady ED Course And Treatment ECG: Interpreted By Me ECG Rhythm: Sinus Rhythm, V-Fibrillation Rate From EC (BPM) O2 Sat by Pulse Oximetry: 99 (ON RA) Pulse Ox Interpretation: Normal Medical Decision Making Medical Decision Makinrd ED visit in 24 hours for anxiety related issues. palpitations MAY be reflux related. NO further w/u at this time as 2 w/u's already done in past 24 hours. pt with poor insight into self-diagnosis- feels entitled to call EMS for minor symptoms every time. Attempt to educate about minor symptoms, but with poor insight. Refer for psych eval/anxiety Disposition Doctor Will See Patient In The: Office Counseled Patient/Family Regarding: Studies Performed, Diagnosis - Disposition Referrals: [facility] [Outside] [facility] [Outside] [facility] [Outside] [facility] [Outside] [id number] [Outside] Disposition: HOME/ ROUTINE Disposition Time: 22:58 Condition: GOOD Additional Instructions: Sigue con los servicios de Psychiatria para evaluarse por scruggs anxiedad sofia Benadryl 25-50 mg en la noche para ayudarse dormir Hickman es scruggs TERCER eveluacion en la nithya de emergencias en 2 clemons. Los evaluacion'es son normales. Es mucho. Instructions: Palpitations, Anxiety, Adult (DC) Forms: [employer] (Costa Rican) Print Language: YORUBA - Clinical Impression Clinical Impression: Palpitations, Anxiety - Scribe Statement The provider has reviewed the documentation as recorded by the Scribe Davy Billy All medical record entries made by the Scribe were at my direction and personally dictated by me. I have reviewed the chart and agree that the record accurately reflects my personal performance of the history, physical exam, medical decision making, and the department course for this patient. I have also personally directed, reviewed, and agree with the discharge instructions and disposition.
[2018-04-25] MEDS ORDERED: Aluminum Hydroxide/Magnesium Hydroxide Susp (30 mL) ONE (23:04)
[2018-04-25 23:13] VITALS: BP 130/76; PULSE 76
[2018-04-25 23:37] VITALS: RESP 18
[2018-04-25 23:49] VITALS: O2SAT 99
== END 2018-04-25 23:32 | disposition home or self-care (01) ==
LOC: C.ER 22:27
DX: F41.9 Anxiety disorder, unspecified (principal); R00.2 Palpitations; I10 Essential (primary) hypertension

== ENCOUNTER 2018-05-27 21:20 | Emergency (ER) | payer OTHER ==
[2018-05-27 21:21] VITALS: BMI 34.0
[2018-05-27 21:29] VITALS: RESP 20
[2018-05-27] MEDS ORDERED: cefTRIAXone (Rocephin) 250 mg Inj IM STA (21:40)
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
[2018-05-27 21:53] LABS: HCG,QUALITATIVE URINE NEGATIVE (NEGATIVE); SQUAMOUS EPITHIAL 12 /hpf (0-5); URINE AMORPHOUS SEDIMENT RARE /ul (<OCC); URINE BACTERIA RARE (<OCC); URINE BILIRUBIN NEGATIVE (NEGATIVE); URINE BLOOD NEGATIVE (NEGATIVE); URINE CLARITY Hazy (Clear); URINE COLOR Amber (YELLOW); URINE GLUCOSE (UA) NORMAL (Normal); URINE LEUKOCYTE ESTERASE NEG Leu/uL (Negative); URINE PROTEIN 2+ mg/dL (NEGATIVE); URINE UROBILINOGEN NORMAL mg/dL (0.2-1.0)
[2018-05-27 23:19] VITALS: BP 116/82; PULSE 92; TEMP 97.8
[2018-05-28 00:21] VITALS: O2SAT 99
== END 2018-05-27 23:20 | disposition home or self-care (01) ==
LOC: C.ER 21:20
DX: Z04.71 Encounter for examination and observation following alleged adult physical abuse (principal); N89.8 Other specified noninflammatory disorders of vagina; I10 Essential (primary) hypertension
CPT/HCPCS: 81001; 84703; 96372; 99283; J0696

== ENCOUNTER 2018-06-24 23:23 | Emergency (ER) | payer OTHER ==
[2018-06-24 23:24] VITALS: BMI 34.0
[2018-06-24 23:34] VITALS: TEMP 98.1
[2018-06-24] MEDS ORDERED: Sodium Chloride 0.9% 1,000 ML IV ONE (23:42)
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
[2018-06-25 00:01] LABS: BASO % 0.8 % (0.0-2.0); EOS # 0.2 K/uL (0.0-0.7); EOS % 3.6 % (0.0-4.0); HEMOGLOBIN 12.9 g/dL (11.0-16.0); LYMPH # 2.5 K/uL (1.0-4.3); LYMPH % 47.5 % (20.0-40.0); MEAN CELL VOLUME 89.2 fL (81.0-99.0); MEAN CORPUSCULAR HEMOGLOBIN 29.8 pg (27.0-31.0); MEAN CORPUSCULAR HGB CONC 33.5 g/dL (33.0-37.0); MEAN PLATELET VOLUME 9.1 fL (7.2-11.7); MONO # 0.3 K/uL (0.0-0.8); MONO % 5.3 % (0.0-10.0); NEUT # 2.2 K/uL (1.8-7.0); NEUT % 42.8 % (50.0-75.0); NRBC % 0.1 % (0.0-2.0); RBC 4.31 Mil/uL (3.80-5.20); RED CELL DISTRIBUTION WIDTH 13.5 % (11.5-14.5); WHITE BLOOD COUNT 5.2 K/uL (4.8-10.8)
[2018-06-25] MEDS ORDERED: Sodium Chloride 0.9% 1,000 ML ONE (00:21)
[2018-06-25 01:04] LABS: ALB/GLOB RATIO 1.4 (1.0-2.1); ALBUMIN 4.2 g/dL (3.5-5.0); ALT/SGPT 40 U/L (9-52); AST/SGOT 29 U/L (14-36); BLOOD UREA NITROGEN 16 mg/dL (7-17); CALCIUM 9.1 mg/dl (8.6-10.4); GFR AFRICAN-AMERICAN > 60; GFR NON-AFRICAN AMERICAN > 60
[2018-06-25 02:11] VITALS: RESP 14
[2018-06-25 02:59] VITALS: O2SAT 100
[2018-06-25 03:13] VITALS: BP 120/70; PULSE 70
--- NOTE | 2018-06-25 09:02 | CT ---
Date of service: 06/25/2018 PROCEDURE: CT HEAD WITHOUT CONTRAST. HISTORY: Headache COMPARISON: 04/25/2018. TECHNIQUE: Axial computed tomography images were obtained through the head/brain without intravenous contrast. Radiation dose: Total exam DLP = 940.11 mGy-cm. This CT exam was performed using one or more of the following dose reduction techniques: Automated exposure control, adjustment of the mA and/or kV according to patient size, and/or use of iterative reconstruction technique. FINDINGS: HEMORRHAGE: No intracranial hemorrhage. BRAIN: Padgett-white matter differentiation is preserved. There is no mass, mass effect or abnormal extra-axial fluid collection. There is no territorial infarction. The midline sagittal structures are normal. VENTRICLES: The ventricles are normal in size, shape and configuration. CALVARIUM: The skull base and calvarium are normal. PARANASAL SINUSES: There is a retention cyst/polyp in the right inferior maxillary sinus. The remaining included paranasal sinuses are predominantly clear. MASTOID AIR CELLS: Predominantly clear. OTHER FINDINGS: None. IMPRESSION: No acute intracranial abnormality. A preliminary report was provided by [employer] services.
--- NOTE | 2018-06-25 12:10 | CARD ---
APPROVED REPORT Date of service: 06/24/2018 EKG Measurement Heart [id number] 160P35 [id number] <Conclusion> Normal sinus rhythm Normal ECG
== END 2018-06-25 03:14 | disposition home or self-care (01) ==
LOC: C.ER 23:23
DX: R42 Dizziness and giddiness (principal)
CPT/HCPCS: 70450; 80053; 85025; 93005; 96374; 96375; 99285; J2060; J2405; J7030

== ENCOUNTER 2018-11-18 17:29 | Emergency (ER) | payer OTHER ==
[2018-11-18 17:30] VITALS: BMI 34.0
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
[2018-11-18 18:24] LABS: BASO % 0.3 % (0.0-2.0); EOS # 0.1 K/uL (0.0-0.7); HEMOGLOBIN 13.4 g/dL (11.0-16.0); LYMPH # 2.7 K/uL (1.0-4.3); LYMPH % 37.4 % (20.0-40.0); MEAN CORPUSCULAR HEMOGLOBIN 29.2 pg (27.0-31.0); MEAN CORPUSCULAR HGB CONC 33.2 g/dL (33.0-37.0); MEAN PLATELET VOLUME 9.2 fL (7.2-11.7); MONO # 0.4 K/uL (0.0-0.8); MONO % 4.8 % (0.0-10.0); NEUT # 4.1 K/uL (1.8-7.0); NEUT % 55.5 % (50.0-75.0); RBC 4.57 Mil/uL (3.80-5.20); RED CELL DISTRIBUTION WIDTH 13.2 % (11.5-14.5); WHITE BLOOD COUNT 7.3 K/uL (4.8-10.8)
[2018-11-18 18:39] LABS: BLOOD UREA NITROGEN 15 mg/dL (7-17); CALCIUM 9.3 mg/dl (8.6-10.4); GFR NON-AFRICAN AMERICAN > 60
[2018-11-18 19:08] VITALS: BP 134/88; PULSE 76; RESP 14; TEMP 98.6; O2SAT 100
--- NOTE | 2018-11-19 12:05 | CARD ---
APPROVED REPORT Date of service: 11/18/2018 EKG Measurement Heart [id number] 154P37 [id number] <Conclusion> Normal sinus rhythm Minimal voltage criteria for LVH, may be normal variant Septal infarct, age undetermined Abnormal ECG
== END 2018-11-18 19:08 | disposition home or self-care (01) ==
LOC: C.ER 17:29
DX: R00.2 Palpitations (principal); I10 Essential (primary) hypertension